=== PATIENT | female | born 1960 | race Caucasian/White ===

== ENCOUNTER 2021-09-21 10:20 | Outpatient (REF) | payer OTHER, SELFPAY ==
[2021-09-21 10:49] LABS: Blood Urea Nitrogen 11 mg/dL (9-16); Estimated Glomerular Filt Rate > 60
== END 2021-09-21 10:21 | disposition home or self-care (01) ==
LOC: HO.LAB 10:20
PROVIDERS: PCP Pediatrics; Visit Provider Urology
DX: R31.0 Gross hematuria (principal)
CPT/HCPCS: 36415; 82565; 84520

== ENCOUNTER 2021-09-25 09:01 | Outpatient (REF) | payer OTHER, SELFPAY ==
--- NOTE | ~2021-09-25 | CT_ITS ---
EXAMINATION: CT ABDOMEN AND PELVIS WITHOUT AND WITH CONTRAST CLINICAL INFORMATION: Gross hematuria COMPARISON: Previous CT scan of the abdomen and pelvis most recent July 2017 and renal ultrasound October 2014 TECHNIQUE: Multidetector volumetric imaging was performed of the abdomen and pelvis before and after the IV administration of 85 mL of Omnipaque 300 intravenous contrast. Sagittal and coronal reformatted images were obtained on the technologist's workstation. This CT examination was performed using dose optimization techniques as appropriate, variously including the following: *Automated exposure control *Adjustment of mA and/or kV according to patient size (this includes techniques or standardized protocols for targeted exams where dose is matched to indication/reason for exam; i.e. extremities or head) *Use of iterative reconstruction technique DLP: 181 mGy-cm FINDINGS: LUNG BASES: The visualized lung bases are unremarkable. LIVER, GALLBLADDER, AND BILIARY TREE: The liver is low in attenuation suggestive of fatty infiltration. The liver is otherwise normal. The gallbladder is been removed. Intrahepatic bile ducts are normal in caliber. Common bile duct is prominent measuring 1.2 cm. This may be normal postcholecystectomy. PANCREAS: Unremarkable SPLEEN: Unremarkable ADRENAL GLANDS: Unremarkable KIDNEYS AND URETERS: The kidneys are normal in size, shape, and attenuation. There are 2 small 1-2 mm stone in the upper and lower pole of the left kidney. No right-sided stone is seen. There may be areas of mild renal cortical thinning or scarring. There is a small 5 mm low-attenuation lesion in the lateral midpole the right kidney probably representing a cyst. No imaging follow-up needed. There is no hydronephrosis. The collecting systems and ureters are normal. BLADDER: Unremarkable GASTROINTESTINAL TRACT: There is diverticulosis of the colon. The small and large bowel are otherwise unremarkable. The appendix is unremarkable. ABDOMINAL WALL: No significant hernia is appreciated. LYMPH NODES: Normal VASCULAR: There is a 1 x 1.5 cm splenic artery aneurysm. This is similar in size to previous exams. PELVIC VISCERA: There is a 2 cm right ovarian cyst. This is similar to previous exams. No imaging follow-up needed. The uterus and adnexa are otherwise unremarkable. OSSEOUS STRUCTURES: There are degenerative changes of the spine. CT/CT abdomen pelvis wo/w con IMPRESSION: 2 small left renal stone. Small probable right renal cyst. Fatty liver. Diverticulosis of the colon. 1 x 1.5 cm splenic artery aneurysm. 2 cm stable right adnexal cyst.
[2021-09-25] MEDS: iohexoL 350 MG/ML 100 ML INFUS..BTL IV (09:56)
== END 2021-09-25 09:02 | disposition home or self-care (01) ==
LOC: HO.CT 09:01
PROVIDERS: PCP Pediatrics; Visit Provider Urology
DX: R31.0 Gross hematuria (principal)
CPT/HCPCS: 74178; Q9967

== ENCOUNTER 2025-08-02 11:10 | Emergency (ER) | payer MEDICARE, SELFPAY ==
--- NOTE | ~2025-08-02 | CT_ITS ---
EXAMINATION: CT HEAD WITHOUT CONTRAST CLINICAL INFORMATION: Left-sided heaviness COMPARISON: None available. TECHNIQUE: Contiguous axial imaging was performed from the skull base to vertex without intravenous administration of contrast. This CT examination was performed using dose optimization techniques as appropriate, variously including the following: *Automated exposure control *Adjustment of mA and/or kV according to patient size (this includes techniques or standardized protocols for targeted exams where dose is matched to indication/reason for exam; i.e. extremities or head) *Use of iterative reconstruction technique DLP: 630 mGY*cm FINDINGS: There is no acute ischemic change. There is no intracranial hemorrhage. There is no mass-effect or midline shift. Basal cisterns and ventricles are within normal limits for age/cerebral volume. Orbits are symmetrical and unremarkable. There is near complete opacification of the left maxillary sinus. The root of a tooth, probably a premolar, extends up into the floor of the left maxillary sinus. The floor the maxillary sinus appears severely thinned and tented upward 4-5 mm adjacent to the aforementioned tooth. There is thickening of the lateral anterior wall of the left maxillary sinus. There is a small mucous retention cyst in the posterior floor the right maxillary sinus. There is a 5 mm spur on the right side of the bony nasal septum. There are no bony abnormalities. CT/CT head/brain wo IV con IMPRESSION: No acute intracranial abnormality. Chronic left maxillary sinusitis possibly related to the root of a tooth (probably a premolar) extending up to the floor of the maxillary sinus with thinning, upward buckling and severe thinning of the adjacent floor the maxillary sinus. There is a 5 mm bony spur projecting off the right side of the nasal septum. Electronically signed by: Chu Edmond MD 08/02/2025 12:23 PM EDT
--- NOTE | ~2025-08-02 | XR_ITS ---
EXAMINATION: XR CHEST 2 VIEWS HISTORY: pain COMPARISON: Comparison is made with the prior examination dated 12/30/2019. FINDINGS: PA and lateral views of the chest are submitted. The lungs are expanded and clear. There is no pleural effusion, pneumothorax, or pulmonary vascular congestion. The heart is normal in size. There is mild degenerative disc disease of the spine. XR/XR chest 2V IMPRESSION: No acute cardiopulmonary abnormality. Electronically signed by: Akshat Humphrey MD 08/02/2025 12:06 PM EDT
--- NOTE | 2025-08-02 11:12 | ECG_ITS ---
Test Reason : cp Blood Pressure : */* mmHG Vent. Rate : 59 BPM Atrial Rate : 59 BPM P-R Int : 170 ms QRS Dur : 86 ms QT Int : 422 ms P-R-T Axes : 24 -19 25 degrees QTcB Int : 417 ms Sinus bradycardia Otherwise normal ECG When compared with ECG of 30-Dec-2019 09:16, No significant change was found Referred By: Generic ED Physician Electronically Signed By: SOL WICK
--- NOTE | 2025-08-02 11:40 | ED_ITS ---
HPI - General Adult General Chief complaint: Neuro Symptoms/Deficit Stated complaint: Chest pain, high BP Time Seen by Provider: 08/02/25 12:37 History of Present Illness ED Provider: Onur Loco MD HPI narrative: 65-year-old female with left-sided facial arm and leg pain discomfort subjective heavy feeling when walking. She woke up at about 03:00 mostly with the leg discomfort she describes as pain mostly in the proximal medial calf area no traumatic injuries she does have history of varicose veins and chronic nonpitting enlargement of the lower legs. No prior DVT or PE per her. She has not been on medications. She awoke then and went back to bed and then woke few hours later felt some facial pain in the left side and discomfort in the left arm particularly in the left 3rd digit and 5th digit she felt like they were transiently swollen no other arm swelling. Denied chest pain denies other neurologic symptoms or history TIA or stroke Related Data Previous Rx's ?Medication ?Instructions ?Recorded amoxicillin 875 mg-potassium 1 tab PO BID 7 days #14 t abs 08/02/25 clavulanate 125 mg tablet aspirin 81 mg capsule 81 mg PO DAILY #30 caps 07/18 05/11 Allergies Allergy/AdvReac Type Severity Reaction Status Date / Time nut - unspecified (NUTS) Allergy Mild ITCHING Verified 08/02/25 11:46 SHELLFISH Allergy Unknown ITCHING Uncoded 08/03/20 14:56 [facility] Social History Social History Advance Directives: No Advance Directives Information Provided: Yes Physical Exam ED Exam Exam: GENERAL: Well appearing. No apparent distress. Alert. HEAD/NECK: Normal to inspection. Neck supple. No cervical lymphadenopathy. EYES: Normal to inspection. Sclera non-icteric. ENMT: External nose normal. RESPIRATORY: Respiratory effort normal. Lungs clear to auscultation bilaterally. CARDIOVASCULAR: Regular rate. Normal rhythm. No murmur. No rubs. GI: Soft, non-tender, non-distended. No rebound or guarding. No masses palpable. No hepatosplenomegaly. SKIN: No jaundice. NEUROLOGICAL: Alert. PSYCHIATRIC: Alert. Appearance appropriate for situation. Attitude cooperative. OTHER: Vascular: No objective or pitting edema. Some mild varicosities superficially in the legs. Comprehensive Neuro exam: Face symmetric, tongue midline, strong symmetric eye closure, pupils symmetric and reactive to light, intact sensation to the face throughout, intact strong face deviation and shoulder shrug. Gait assessment normal no objective sensory deficits to light touch testing Sensation intact to light touch throughout * 5 out of 5 strength in bilateral upper extremities, 5 and 5 strength in lower extremities Vital Signs: Vital Signs - 24 hr 08/02/25 11:42 08/02/25 13:32 08/02/25 13:43 Temperature 97.8 F 98.2 F 98.2 F Pulse Rate 58 71 71 Respiratory Rate 18 20 20 Blood Pressure 214/73 H 143/78 H 143/78 H Pulse Oximetry 97 95 95 Oxygen Delivery Method Room Air Room Air Room Air BMI result Body Mass Index 45.5 Course Course Course Narrative: Rapid medical examination performed in triage by Jemima Manzanares PA-C. Patient is a 65 year old assigned female at presenting to the emergency department with left sided heaviness. Detailed physical exam and review of systems are deferred to the ecological risk assessor. EKG, labs, imaging, swabs ordered. Patient placed back in the waiting room pending room availability and results. Medications Administered Discontinued Medications Generic Name Dose Route Start Last Admin Trade Name Darenq PRN Reason Stop Dose Admin Amoxicillin/Clavulanate Potassium 875 mg 08/02/25 12:41 08/02/25 13:29 Amoxicillin/Potassium Clav 875 Mg Tablet PO 08/02/25 12:42 875 mg ONCE ONE Administration Oxycodone HCl 5 mg 08/02/25 12:41 08/02/25 13:29 Oxycodone Hcl Immed Release 5 Mg Tablet PO 08/02/25 12:42 5 mg ONCE ONE Administration Medical Decision Making Medical Decision Making [facility] Narrative: Medical Decision Makin-year-old female with atypical symptoms no loss of function symptomatology and reassuring examination here. Doubt CVA though this was considered. The patient primarily had concern for this. Her discomfort is atypical particularly in the left arm there is no objective edema neurologic deficit or objective swelling of the digits as she was concerned about above. No typical anginal symptomatology nor any known coronary disease. ECG is reassuring without ischemic changes Preliminary Favored Differential Diagnosis: Dental infection, hypertensive urgency, medical screening exam, musculoskeletal pain or cramp among additional considered etiologies Testing Interpreted Independently: ?ECG: Sinus bradycardia. Rate 59. No ischemic changes. QTC 417 Reassuring lab work negative biomarker Radiology or Lab testing Results Reviewed: ?CT head only with possibly odontogenic or maxillary sinus pathology as noted Consults: ?See below for details Independent Historians/External Chart Reviews: ?See below for details Social Determinants of Health Impacting MDM/Planning: ?See below for details Lab Data MDM Lab Attestation statement: I reviewed the patient's lab results. 08/02/25 11:58 08/02/25 11:58 Labs: Lab Results 08/02/25 Range/Units 11:58 WBC 7.7 (4.8-10.8) X10*3/uL RBC 5.01 (4.20-5.50) X10*6/uL Hgb 15.1 (12.0-16.0) g/dl Hct 44.6 (37.0-47.0) % MCV 89.0 (80.0-98.0) fL MCH 30.1 (27.0-33.0) pg MCHC 33.9 (31.0-35.0) g/dl RDW 13.2 (11.0-16.0) % Plt Count 236 (160-400) X10*3/uL MPV 10.8 (9.4-12.3) fL Immature Gran % (Auto) 0.3 (0.0-0.4) % Neut % (Auto) 58.8 (45-73) % Lymph % (Auto) 29.0 (20-40) % [place] % (Auto) 8.6 (2-11) % Eos % (Auto) 3.0 (0-4) % Baso % (Auto) 0.3 (0-2) % Lymph # (Auto) 2.2 (1.2-4.9) X10*3/uL [place] # (Auto) 0.7 (0.1-1.2) X10*3/uL Eos # (Auto) 0.2 (0.0-0.4) X10*3/uL Baso # (Auto) 0.0 (0.0-0.2) X10*3/uL Abs Immat Gran (auto) 0.02 (0.00-0.03) X10*3/uL Absolute Neuts (auto) 4.5 (2.0-8.3) x10*3/uL Absolute Nucleated RBC 0.000 (0.0-0.012) X10*3/uL Nucleated RBC % (auto) 0.0 (0.0-0.2) /100WBC PT 12.7 H (10.9-12.4) SEC INR 1.1 (0.9-1.1) Sodium 142 (135-145) mmol/L Potassium 4.1 (3.3-5.1) mmol/L Chloride 108 (96-108) mmol/L Carbon Dioxide 27 (22-29) mmol/L Anion Gap 11 L (12-20) BUN 11 (9-16) mg/dL Creatinine 0.68 (0.5-1.4) mg/dL Estim Creat Clear Calc 94.3 Estimated GFR > 60 Random Glucose 105 (60-115) mg/dL Calcium 10.3 H (8.4-10.2) mg/dL Magnesium 2.1 (1.6-2.6) mg/dL Total Bilirubin 0.8 (0.0-1.0) mg/dL AST 30 (5-31) U/L ALT 34 H (0-31) U/L Alkaline Phosphatase 82 (39-117) U/L Troponin I High Sens < 2.7 (<3.5-17.0) ng/L Total Protein 7.8 (6.5-8.0) g/dL Albumin 4.4 (3.5-5.0) g/dL Discharge Plan Discharge Clinical Impression: Dental caries Patient Disposition: Home, Self-Care Instructions: Toothache (ED) Additional Instructions: While here in the emergency department you had a CT of the brain and chest x- ray. There was no abnormalities of the brain or central nervous system visualized. You did have evidence of tooth degeneration possibly caries or infection. We will treat you for this. We have prescribed you antibiotics and strongly recommend you take baby aspirin daily until you see PCP IMPRESSION: No acute intracranial abnormality. Chronic left maxillary sinusitis possibly related to the root of a tooth (probably a premolar) extending up to the floor of the maxillary sinus with thinning, upward buckling and severe thinning of the adjacent floor the maxillary sinus. There is a 5 mm bony spur projecting off the right side of the nasal septum. Prescriptions: New amoxicillin-pot clavulanate 875-125 mg tablet 1 tab PO BID 7 Days Qty: 14 0RF aspirin 81 mg capsule 81 mg PO DAILY Qty: 30 0RF Interventions: ED Discharge Assessment Last Done: 08/02/25 13:43 Discharge Date/Time: 08/02/25 13:43 Print Language: Slovenian
[2025-08-02 11:42] VITALS: BP 214/73; PULSE 58; RESP 18; TEMP 36.6; O2SAT 97; BMI 45.5
[2025-08-02 12:01] LABS: MANUAL DIFF FLAG NO
[2025-08-02 12:05] LABS: Hematocrit 44.6 % (37.0-47.0); Hemoglobin 15.1 g/dl (12.0-16.0); Imm Gran Abs Auto 0.02 X10*3/uL (0.00-0.03); Imm Gran Pct Auto 0.3 % (0.0-0.4); Lymphocytes Absolute Auto 2.2 X10*3/uL (1.2-4.9); Mean Corpuscular HGB Conc 33.9 g/dl (31.0-35.0); Mean Corpuscular Hemoglobin 30.1 pg (27.0-33.0); Mean Corpuscular Volume 89.0 fL (80.0-98.0); NRBC Abs Auto 0.000 X10*3/uL (0.0-0.012); NRBC Pct Auto 0.0 /100WBC (0.0-0.2); Platelet Count 236 X10*3/uL (160-400); Red Blood Count 5.01 X10*6/uL (4.20-5.50); White Blood Count 7.7 X10*3/uL (4.8-10.8)
[2025-08-02 12:18] LABS: Alanine Aminotransferase 34 U/L (0-31); Albumin Level 4.4 g/dL (3.5-5.0); Alkaline Phosphatase 82 U/L (39-117); Anion Gap 11 (12-20); Aspartate Amino Transferase 30 U/L (5-31); Blood Urea Nitrogen 11 mg/dL (9-16); Calcium 10.3 mg/dL (8.4-10.2); Carbon Dioxide 27 mmol/L (22-29); Chloride 108 mmol/L (96-108); Creatinine Clr Calc Pharmacy 94.3; Estimated Glomerular Filt Rate > 60; Magnesium 2.1 mg/dL (1.6-2.6); Potassium 4.1 mmol/L (3.3-5.1); Sodium 142 mmol/L (135-145); Total Protein 7.8 g/dL (6.5-8.0)
[2025-08-02 12:19] LABS: INTERNATIONAL NORM RATIO 1.1 (0.9-1.1); Prothrombin Time 12.7 SEC (10.9-12.4)
[2025-08-02 12:27] LABS: Troponin-I High Sensitivity < 2.7 ng/L (<3.5-17.0)
[2025-08-02] MEDS: oxyCODONE HCl Immed Release 5 MG TABLET PO (13:29)
[2025-08-02 13:32] VITALS: BP 143/78; PULSE 71; RESP 20; TEMP 36.8; O2SAT 95
[2025-08-02 13:43] VITALS: BP 143/78; PULSE 71; RESP 20; TEMP 36.8; O2SAT 95
--- OUTSIDE RECORDS SUMMARY | 2025-08-02 16:41 | XMS_ITS | Clinical Summary ---
Author Organization [facility] [address] [place] [address] [place] [phone] Phone Care Team Providers Care Group Exercise Instructor Name Role Phone Sahara Dyson MD Primary Care Provider [phone] Allergies Active Allergy Reactions Criticality Noted Date Comments [place] Oil Itching 07/20/2013 Peanut Itching 07/20/2013 Shellfish Derived 04/21/2012 Medications acetaminophen (TYLENOL 8 HOUR) 650 mg 8 hr tablet Take 1 Tab by mouth every 8 hours as needed for Pain for up to 10 days. 7 Active ibuprofen (ADVIL,MOTRIN) 600 mg tablet Take 1 Tab by mouth every 6 hours as needed for Pain. 5 Active meclizine (ANTIVERT) 12.5 mg tablet Take 1 tablet (12.5 mg total) by mouth 3 (three) times a day if needed for dizziness. Take 0.5-1 Tablets by mouth every 8 hours as needed (for vertigo, take only at night time if too sedating). 30 tablet 1 4 Active diclofenac (VOLTAREN) 1 % topical gel APPLY 2 G TOPICALLY TWICE A DAY 100 g 5 5 Active polyethylene glycol (Golytely) 236-22.74-6.74 -5.86 gram solution Take 4L by mouth once for one dose. May substitue any PEG. Starting at 6PM the night before your procedure drink 1 8oz glasses at your own pace until you complete half of the gallon. Finish 2nd half of the gallon 5 hours before your procedure. 4000 mL 5 Active bisacodyL (DULCOLAX) 5 mg EC tablet Take 2 tablets by mouth right before beginning bowel prep. See instructions provided by the office 2 tablet 5 Active bisacodyL (DULCOLAX) 5 mg EC tablet Take 2 tablets by mouth right before beginning bowel prep. See instructions provided by the office 2 tablet 5 Active polyethylene glycol (Golytely) 236-22.74-6.74 -5.86 gram solution Take 4L by mouth once for one dose. May substitue any PEG. Starting at 2PM the day before your procedure drink 1 8oz glasses at your own pace until you complete half of the gallon. Finish 2nd half of the gallon at 8PM. 4000 mL 5 Active Active Problems Problem Noted Date Diagnosed Date Splenic artery aneurysm ([facility] V24) 09/21/2024 Overview (09/21/2024): 15 mm - ab CT 06/07/15 Morbid obesity with BMI of 4 5.0-49.9, adult ([facility] V24, [facility] V28) 09/21/2024 Gastroesophageal reflux disease without esophagi tis 10/29/2016 BPPV (benign paroxysmal positional vertigo) 06/2015 Hip pain, left 02/12/2012 Varicose veins of leg with pain 02/12/2012 Overview (09/21/2024): 04/21/2012 Neg Jonathan' Encounters Date Type Department Care Team Description 05/24/2025 Telephone Gastroenterology - [place] [facility] 175 [facility] [address] [place] [address] Olu Bruce DO from Last 3 Months Immunizations Name Administration Dates Next Due Hepatitis B Pediatric (Enger ix B; Recombivax HB) to less than 20 yo 07/05/2008,08/27/2007,03/31/2007 Influenza trivalent, 0.5mL, preservative free (Fluarix; FluLaval; Fluzone) ages 6mo and older (Afluria) 3 years and older 07/12/2020,08/02/2019,08/31/2014,2012,08/27/2007 Td Tetanus diptheria (Tdvax) 7yo and older 11/03/2007 Tdap Tetanus diptheria acell ular pertussis (Boostrix; Adacel) 7yo and older 07/20/2013 Surgical History Surgery Date Site/Laterality Comments CHOLECYSTECTOMY 2004 PROCEDURE: OR CHOLECYSTECTOMY KIDNEY STONE SURGERY 2006 PROCEDURE: OR NEPHROLITHOTOMY REMOVAL CALCULUS SECTION 1977 PROCEDURE: HISTORICAL TUBAL LIGATION PROCEDURE: HISTORICAL TUBAL LIGATION COLONOSCOPY 07/01/12 PROCEDURE: HISTORICAL COLONOSCOPY; COMMENT: tics; repeat in 5 yrs BREAST BIOPSY 06/18/2019 Right PROCEDURE: OR BIOPSY BREAST OPEN INCISIONAL; COMMENT: benign, intraductal papillomas BREAST BIOPSY PROCEDURE: BX BREAST; PERC NEEDLE CORE W/IMAG GUID Medical History Medical History Date Comments Obesity DX:Obesity History of kidney stones DX:Hist ory of kidney stones Splenic artery aneurysm (CMS/HCC V24) DX:Splenic artery aneurysm (HCC); COMMENT: 15 mm - ab CT 06/07/15 Vertigo DX:Vertigo GERD (gastroesophageal reflux disease) DX:GERD (gastroesophageal reflux disease) Post-menopausal bleeding DX:Post -menopausal bleeding Family History Medical History Relation Name Comments Throat cancer Father stomach CA unc le and aunt had pancreatic CA Uterine cancer Father's side cousin Breast cancer Mother Colon cancer Sister 1 Stomach cancer Uncle father's side Ovarian cancer Neg Hx Relation Name Status Comments Brother Alive stomach ulcers, depression, thyroid issues Daughter Alive healthy Father throat CA Father's side Mother breast CA (age 72), AAA, HTN, high cholesterol, bad kidneys Mother's side high cholester ol Sister 1 Sister 2 Alive colon CA (53), thyroid Sister 3 Alive unknown Sister 4 Alive healthy Son 1 Alive healthy Son 2 Alive healthy Uncle Social History Tobacco Use Types Packs/Day Years Used Date Smoking Tobacco: Never Smokeless Tobacco: Never Alcohol Use Standard Drinks/Week Comments No 0 (1 standard drink = 0.6 oz pur e alcohol) Housing Instability Answer Date Recorde d Are you worried that in the next 2 months you may not have stable housing? No 10/27/2024 Food Access & Nutrition Answer Date Rec orded Do you have access to a vari ety of food including fruits and vegetables? No 10/27/2024 Financial Risk Answer Date Recorded How hard is it for you to pa y for the very basics like food, housing, medical care, and air conditioning / heating? Not very hard 10/27/2024 Transportation Answer Date Recorded Has the lack of transportati on kept you from meetings, work, or from getting things needed for daily living? No Has the lack of transportati on kept you from medical appointments or from getting medications? No 10/27/2024 Social Isolation Answer Date Recorded How often do you feel lonely or isolated from th ose around you? Never 10/27/2024 Food Risk Answer Date Recorded Within the past 12 months we worried whether our food would run out before we got money to buy more. Never true 10/27/2024 Within the past 12 months th e food we bought just didn't last and we didn't have money to get more. Never true 10/27/2024 Dependent Care Answer Date Recorded Do you need help finding or paying for care for your loved ones. For example, children's book author or elderly care for an older adult? Patient declined 10/27/2024 Education Answer Date Recorded Do you think completing more education or training, like finishing a GED, going to college, or learning a trade, would be helpful for you? No 10/27/2024 Employment and Income Answer Date Recor ded During the last four weeks, have you been actively looking for work? No 10/27/2024 Living Situation Answer Date Recorded What is your living situation? 1 12/28/2023 Comments No Sex and Gender Information Value Date Recorded Sex Assigned at Not on file Legal Sex Female 2:14 AM EST Gender Identity Not on file Sexual Orientation Not on file Obstetrics History Last Filed Vital Signs Vital Sign Reading Time Taken Comments Blood Pressure 122/78 10/27/2024 1:19 PM EST Pulse 76 10/27/2024 1:19 PM EST Temperature 36.4 C (97.5 F) 10/27/2024 1:19 PM EST Respiratory Rate 14 10/27/2024 1:19 PM EST Oxygen Saturation - - Inhaled Oxygen Concentration - - Weight 111 kg (244 lb) 10/27/2024 1:19 PM EST Height 154.9 cm (5' 1 ) 10/27/2024 1:19 PM EST Body Mass Index 46.1 10/27/2024 1:19 PM EST Plan of Treatment Upcoming Encounters Date Type Department Care Team (Late st Contact Info) Description 08/15/2025 12:00 PM EDT Appointment Endoscopy [address] [place] [id number] Olu Bruce, 175 [facility] 200 [place] [address] Health Maintenance Due Date Last Done Comments Pneumococcal Vaccine: 50+ Years (1 of 1 - PCV) 01/15/2010 Zoster Vaccines (1 of 2) 01/15/2010 RSV Immunization Adult Patients (1 - Risk 60-74 years 1-dose series) 2020 Cervical Cancer Screening: Pap Smear 02/16/2022 02/16/2019, 02/16/2019, 02/16/2019 Colorectal Cancer Screening: Colonoscopy 10/26/2022 Osteoporosis Screening (Bone Density Screening) 10/26/2022 Depression Screening 11/17/2024 10/27/2024 Falls Risk Assessment 01/15/2025 COVID-19 Vaccine ( season) 2025 Influenza Vaccine (#1) 2025 , 08/02/2019, 08/13/2018, Additional history exists DTaP,Tdap,and Td Vaccines (3 - Td or Tdap) 10/26/2025 07/20/2013, 11/03/2007 Postponed from 07/20/2023 (Patient Refused) Social Influencers of Health Screening 10/27/2025 10/27/2024 Breast Cancer Screening 09/09/2026 09/09/20 24, 09/09/2024, 09/05/2023, Additional history exists Cholesterol Screening (Lipid Panel) 09/13/2026 09/13/2021 Hepatitis B Vaccines Aged Out 07/05/2008, 08/27/2007, 03/31/2007 No longer eligible based on patient's age to complete this topic Hepatitis C Screening Completed 05/30/2017 HIB Vaccines Aged Out No longer eligi ble based on patient's age to complete this topic HPV Vaccines Aged Out No longer eligi ble based on patient's age to complete this topic Hepatitis A Vaccines Aged Out No long er eligible based on patient's age to complete this topic IPV Vaccines Aged Out No longer eligi ble based on patient's age to complete this topic MMR Vaccines Aged Out No longer eligi ble based on patient's age to complete this topic Meningococcal ACWY Vaccine Aged Out N o longer eligible based on patient's age to complete this topic Meningococcal B Vaccine Aged Out No l onger eligible based on patient's age to complete this topic RSV Immunization Patients Under 20 months Aged Out No longer eligible based on patient's age to complete this topic Varicella Vaccines Aged Out No longer eligible based on patient's age to complete this topic Procedures Procedure Name Priority Date/Time Associated Diagnosis Comments SCREENING MAMMOGRAPHY BI 2-VIEW BREAST INC CAD Routine 09/09/2024 1:56 PM EDT Encounter for gynecological examination (general) (routine) without abnormal findings LIPID PANEL Routine 09/13/2021 PAP SMEAR Routine 02/16/2019 HM HEPATITIS C SCREENING Routine 05/30/2017 from Last 3 Months or Most Recently Relevant to Health Maintenance Results * SCREENING MAMMOGRAPHY BI 2-VIEW BREAST INC CAD (09/09/2024 1:56 PM EDT) Anatomical Region Laterality Modality Radiographic Aislinn ging 09/05/2023 11:0 2 AM EDT Narrative 09/10/2024 10:25 AM EDT This is a summary report. The complete report is available in the patient's medical record. If you cannot access the medical record, please contact the sending organization for a detailed fax or copy. Exam: Screening mammogram Findings: Digital bilateral full-field screening mammography is performed with tomosynthesis and interpreted with the aid of computer-aided detection. Comparison is made with 09/05/2023 and as far back as 03/22/2015. History of a right excisional biopsy for an intraductal papilloma 06/18/2019. Breast parenchyma is composed of scattered fibroglandular densities. No new suspicious mass, architectural distortion, or suspicious calcifications. Impression: No mammographic evidence of malignancy. BI-RADS 1 - negative [facility] [address] [id number] Procedure Note Rhea Fonseca MD - 09/18/2024 This is a summary report. The complete report is available in thepatient's medical record. If you cannot access the medical record, pleasecontact the sending organization for a detailed fax or copy. Exam: Screening mammogram Findings: Digital bilateral full-field screening mammography is performedwith tomosynthesis and interpreted with the aid of computer-aideddetection. Comparison is made with 09/05/2023 and as far back as03/22/2015. History of a right excisional biopsy for an intraductalpapilloma 06/18/2019. Breast parenchyma is composed of scattered fibroglandular densities. Nonew suspicious mass, architectural distortion, or suspiciouscalcifications. Impression: No mammographic evidence of malignancy. BI-RADS 1 - negative [facility] [address] [id number] Nataliia Rojas CNM IMG XR PROCEDURES Final Result * Lipid panel (09/13/2021) LDL/HDL Ratio 3 0 - 4 Triglycerides 108 0 - 150 mg/dL Cholesterol 168 0 - 200 mg/dL HDL 65 >=40 mg/dL LDL Cholesterol 82 0 - 100 mg/dL Blood Venous blood specimen / Unknown us Historical Provider LAB BLOOD ORDERABLES Andie l Result * Pap smear (02/16/2019) 02/16/2019 Narrative HISTORICAL TESTING LAB RESULTING AGENCY - 02/18/2019 2:57 PM EDT [id number] THINPREP PAP, IMAGED: NEGATIVE FOR SQUAMOUS INTRAEPITHELIAL LESION AND MALIGNANCY . APOLINAR BHARDWAJ(ASCP) (CASE ELECTRONICALLY SIGNED 02 18 2019) RESULT OF APTIMA HIGH RISK HPV ASSAY: HIGH RISK HPV: NEGATIVE (SEROTYPES 16,18,31,33,35,39,45,51,52,56,58,59,66,68) COMPLETED ON 2019-02-18 ADEQUACY: SATISFACTORY ENDOCERVICAL/TRANSFORMATION ZONE COMPONENT PRESENT. SOURCE: THINPREP PAP HPV ANY DX: REFLEX 16 AND 18, CERVICAL, IMAGED CLINICAL INFORMATION: HPV ANY DIAGNOSIS. Z12.4, Z01.419, PAP HX 09/24/13 Melissa Urrutia MD LAB CYTOLOGY ORDERABLES Final R esult HISTORICAL TESTING LAB RESULTING AGENCY * Hepatitis C Screening (05/30/2017) Hepatitis C Screening Abstracted us Historical Provider HEALTH MAINTENANCE Final Result from Last 3 Months or Most Recently Relevant to Health Maintenance Advance Directives Documents on File Type Date Recorded Patient Synchronizer Expl anation Health Care Decision (hx) 04/14/2015 AD ALEMAN DIRECTIVE Health Care Decision (hx) 04/14/2015 AD ALEMAN DIRECTIVE Health Care Decision (hx) 04/14/2015 AD ALEMAN DIRECTIVE Health Care Decision (hx) 04/13/2015 AD ALEMAN DIRECTIVE Health Care Decision (hx) 04/13/2015 AD ALEMAN DIRECTIVE Health Care Decision (hx) 04/13/2015 AD ALEMAN DIRECTIVE Care Teams Group Exercise Instructor Relationship Specialty Start Date End Date Sahara Dyson MD PCP - General 07/07/23
--- OUTSIDE RECORDS SUMMARY | 2025-08-02 16:41 | XMS_ITS | Clinical Summary ---
Author Organization [facility] Address [address] [place] [phone] Phone Care Team Providers Care Sheet Folder Name Role Phone Sahara Dyson MD Unavailable Sahara Dyson MD Primary Care Provider [phone] Social History Tobacco Use Types Packs/Day Years Used Date Smoking Tobacco: Never Assessed Education Answer Date Recorded Are you interested in more education? Not on thania e 03/14/2023 Are you concerned about learning? Not on file 03/14/2023 No 03/14/2023 No 03/14/2023 Digital Access Answer Date Recorded No 04/15/2023 No 04/15/2023 No 04/15/2023 Reliable internet access at home? Not on file 04/15/2023 Device with a working camera? Not on file Comments Unknown Sex and Gender Information Value Date Recorded Sex Assigned at Not on file Legal Sex Female 11:18 AM EDT Gender Identity Not on file Sexual Orientation Not on file Plan of Treatment Health Maintenance Due Date Last Done Comments LIPID PANEL 1960 DEPRESSION SCREENING 1972 SMOKING Hx and SMOKELESS TOBACCO SCREENING 01/15/1973 HEPATITIS C SCREENING 01/15/1978 HIV ONE-TIME SCREENING (18-65 YEARS) 01/15/1978 MAMMOGRAM 2000 COLOGUARD 01/15/2005 COLONOSCOPY 01/15/2005 COLORECTAL CANCER SCREENING 01/15/2005 FIT TEST 01/15/2005 FOBT 01/15/2005 SIGMOIDOSCOPY 01/15/2005 VIRTUAL COLONOSCOPY 01/15/2005 PNEUMOCOCCAL VACCINES (50+ years) (1 of 1 - PCV) 01/15/2010 ZOSTER VACCINES (1 of 2) 01/15/2010 Adult Td,Tdap Booster 07/20/2023 07/20/2013, 007 OSTEOPOROSIS SCREENING INITIAL (ONE-TIME) 01/15/2025 INFLUENZA VACCINE (#1) 2025 0, 08/02/2019, 08/13/2018, Additional history exists COVID-19 VACCINE ( - 2023- season) 2025 RSV VACCINE (1 - 1-dose 75+ series) 01/15/2035 HEPATITIS A VACCINES Aged Out No long er eligible based on patient's age to complete this topic HIB VACCINES Aged Out No longer eligi ble based on patient's age to complete this topic MENINGOCOCCAL VACCINES (ACWY) Aged Out No longer eligible based on patient's age to complete this topic MENINGOCOCCAL VACCINES (B) Aged Out N o longer eligible based on patient's age to complete this topic Medical Devices Not on file Insurance [employer] [facility] [place] [address] [place] [address] [place] [address] [place] [address] [facility]CO [facility] Care Teams Sheet Folder Relationship Specialty Start Date End Date Sahara Dyson MD [address] [place] [id number] PCP - General Internal Medicine 12/06/22 Sahara Dyson MD [address] [place] [id number] Internal Medicine 12/06/22 Additional Source Comments The information contained in this document represents components of the legal health record. It is not the complete legal health record.[facility]
== END 2025-08-02 13:43 | disposition home or self-care (01) ==
PROVIDERS: Physician Assistant Medical; Emergency Provider Emergency Medicine
DX: K02.9 Dental caries, unspecified (principal); R07.9 Chest pain, unspecified; M79.606 Pain in leg, unspecified; R42 Dizziness and giddiness
CPT/HCPCS: 36415; 70450; 71046; 80053; 83735; 84484; 85025; 85610; 93005; 99284; 99285

== ENCOUNTER → 2025-08-02 11:12 | Outpatient (BNV) | payer SELFPAY | PROVIDERS: Emergency Provider Emergency Medicine; Visit Provider Internal Medicine | DX: R00.1 Bradycardia, unspecified (principal) | CPT/HCPCS: 93010 ==

== ENCOUNTER → 2025-08-02 11:42 | Outpatient (BNV) | payer OTHER, SELFPAY | PROVIDERS: Emergency Provider Emergency Medicine; Visit Provider Radiology Diagnostic Radiology | DX: R07.9 Chest pain, unspecified (principal) | CPT/HCPCS: 71046 ==

== ENCOUNTER 2025-09-15 16:30 | Emergency (ER) | payer MEDICARE, OTHER, SELFPAY ==
--- NOTE | ~2025-09-15 | CT_ITS ---
CLINICAL HISTORY: bladder pressure, hx nephrolithiasis CT abdomen and pelvis without contrast Comparison: None provided Findings: Inflammatory stranding adjacent to sigmoid colon. Underlying lateral wall diverticulum noted. No free air or fluid collection. Lung bases clear. No acute bony abnormality. Fatty infiltration of the liver without focal abnormality. Pancreas, Spleen and adrenal glands unremarkable. Cholecystectomy. No bilateral renal stone or hydronephrosis. No focal renal abnormality or ureteral dilation. No evidence for aortic aneurysm. 1.5 cm calcified splenic artery aneurysm. No free fluid or adenopathy in the pelvis. Appendix unremarkable. Uterus normal size. No adnexal abnormality. Impression: Sigmoid diverticulitis without complicating features This document has been electronically signed by: Markos Mcfadden MD on 09/15/2025 21:50:43
[2025-09-15 16:45] VITALS: BP 181/80; PULSE 87; RESP 16; TEMP 36.6; O2SAT 97; BMI 37.7
--- NOTE | 2025-09-15 17:05 | ED.GENADULT ---
[facility] - General Adult General Chief complaint: Abdominal Pain Stated complaint: kidney stone pain Time Seen by Provider: 09/15/25 20:29 Source: patient Mode of arrival: ambulatory Limitations: no limitations History of Present Illness ED Provider: Dr. Haque [facility] narrative: This is a 65-year-old female history of nephrolithiasis presented hospital today for lower abdominal pain. Patient is complaining of pain over her bladder area. Patient stated that she has pressure to urinate over the bladder area. This is abnormal for her. She is feeling bilateral pressure from bilateral flank area. No nausea no vomiting. She does not complain of any fever. No recent illness. Patient stated that she has bilateral kidney stones in the past. Requiring intervention. Normal bowel movement. Related Data Previous Rx's ?Medication ?Instructions ?Recorded amoxicillin 875 mg-potassium 1 tab PO BID 7 days #14 tabs 08/02/25 clavulanate 125 mg tablet aspirin 81 mg capsule 81 mg PO DAILY #30 caps 08/02/25 amoxicillin 875 mg-potassium 1 tab PO Q12H 7 days #14 tabs 09/15/25 clavulanate 125 mg tablet Allergies Allergy/AdvReac Type Severity Reaction Status Date / Time nut - unspecified (NUTS) Allergy Mild ITCHING Verified 09/15/25 16:45 SHELLFISH Allergy Unknown ITCHING Uncoded 09/15/25 16:45 Review of Systems Review of Systems: Pertinent review of systems as mentioned in [facility]. All other system otherwise negative. [facility] Past Medical History [facility] Narrative: Medical history as mentioned in [facility] Physical Exam ED Exam Exam: General: Pleasant, no distress, interacting appropriately Head: Normacephalic, atraumatic ENT: oral mucosa moist, neck supple, no tracheal deviation Cardiovascular: regular rate, regular rhythm, no murmurs, rubbing, gallops Respiratory: CTAB, no wheeze, rales, rhonchi Gastrointestinal: Soft, non distended, tenderness on the infraumbilical area on palpation Neurological: Awake and alert, no facial droop noted Skin: Warm and dry Psychiatric: Appropriate mood and thoughts Vital Signs: Vital Signs - 24 hr 09/15/25 16:45 09/15/25 22:20 Temperature 98 F 97.8 F Pulse Rate 87 77 Respiratory Rate 16 17 Blood Pressure 181/80 H 132/77 Pulse Oximetry 97 99 Oxygen Delivery Method Room Air Room Air BMI result Body Mass Index 37.7 Course Course Course Narrative: RME: 65-year-old female with history of kidney stones diverticulitis presents to ED for lower abdominal pain that is worse with bowel movements and urination. Patient had appendix removed. Labs ordered Medications Administered Discontinued Medications Generic Name Dose Route Start Last Admin Trade Name Freq PRN Reason Stop Dose Admin Amoxicillin/Clavulanate Potassium 875 mg 09/15/25 22:03 09/15/25 22:20 Amoxicillin/Potassium Clav 875 Mg Tablet PO 09/15/25 22:04 875 mg ONCE ONE Administration Medical Decision Making Medical Decision Making [facility] Narrative: 65-year-old female history of nephrolithiasis presented hospital today for lower abdominal pressure and dysuria and urgency to pee. UA did not show any signs of UTI. Here the patient abdominal lab work is unremarkable. We will plan to obtain CT imaging of her abdomen and pelvis to further assess the cause of her pressure sensation in her lower abdomen. She does have significant tenderness in the inferior umbilical area. CT imaging did show signs of sigmoid diverticulitis we will plan to give patient a dose of Augmentin here. We will plan to discharge patient with a course of Augmentin to take for diverticulitis. Patient agrees and understands this plan all questions were addressed. Differential Diagnosis Differential Diagnoses: The differential diagnosis associated with the presentation includes Diverticulitis, urinary tract infection, pyelonephritis, nephrolithiasis Lab Data [facility] Lab Attestation statement: I reviewed the patient's lab results. 09/15/25 17:17 09/15/25 17:17 Labs: Lab Results 09/15/25 09/15/25 Range/Units 17:17 17:26 WBC 10.7 (4.8-10.8) X10*3/uL RBC 4.41 (4.20-5.50) X10*6/uL Hgb 13.3 (12.0-16.0) g/dl Hct 40.5 (37.0-47.0) % MCV 91.8 (80.0-98.0) fL MCH 30.2 (27.0-33.0) pg MCHC 32.8 (31.0-35.0) g/dl RDW 13.1 (11.0-16.0) % Plt Count 223 (160-400) X10*3/uL MPV 10.7 (9.4-12.3) fL Immature Gran % (Auto) 0.3 (0.0-0.4) % Neut % (Auto) 65.9 (45-73) % Lymph % (Auto) 22.3 (20-40) % [place] % (Auto) 9.0 (2-11) % Eos % (Auto) 2.2 (0-4) % Baso % (Auto) 0.3 (0-2) % Lymph # (Auto) 2.4 (1.2-4.9) X10*3/uL [place] # (Auto) 1.0 (0.1-1.2) X10*3/uL Eos # (Auto) 0.2 (0.0-0.4) X10*3/uL Baso # (Auto) 0.0 (0.0-0.2) X10*3/uL Abs Immat Gran (auto) 0.03 (0.00-0.03) X10*3/uL Absolute Neuts (auto) 7.1 (2.0-8.3) x10*3/uL Absolute Nucleated RBC 0.000 (0.0-0.012) X10*3/uL Nucleated RBC % (auto) 0.0 (0.0-0.2) /100WBC Sodium 142 (135-145) mmol/L Potassium 3.7 (3.3-5.1) mmol/L Chloride 107 (96-108) mmol/L Carbon Dioxide 28 (22-29) mmol/L Anion Gap 11 L (12-20) BUN 16 (9-16) mg/dL Creatinine 0.76 (0.5-1.4) mg/dL Estim Creat Clear Calc 97.0 Estimated GFR > 60 Random Glucose 161 H (60-115) mg/dL Calcium 9.0 D (8.4-10.2) mg/dL Total Bilirubin 0.4 (0.0-1.0) mg/dL AST 20 (5-31) U/L ALT 30 (0-31) U/L Alkaline Phosphatase 88 (39-117) U/L Total Protein 7.1 (6.5-8.0) g/dL Albumin 4.1 (3.5-5.0) g/dL Urine Color Yellow Urine Appearance Clear Urine pH 5.5 (5.0-9.0) Ur Specific [place] 1.020 (1.005-1.025) Urine Protein Negative (Neg-Trace) mg/dL Urine Glucose (UA) Negative (Negative) mg/dL Urine Ketones Negative (Negative) mg/dL Urine Blood Negative (Negative) Urine Nitrite Negative (Negative) Ur Leukocyte Esterase Negative (Negative) Independent Interpretation I performed an independent interpretation of an: CT Scan Radiology Impression Discussion of test interpretation with radiology: I have reviewed the radiologist's reading. Prescription Management I considered prescription management with: Antibiotic Discharge Plan Discharge Clinical Impression: Diverticulitis Patient Disposition: Home, Self-Care Instructions: Diverticulitis (ED) Prescriptions: New amoxicillin-pot clavulanate 875-125 mg tablet 1 tab PO Q12H 7 Days Qty: 14 0RF No Action amoxicillin-pot clavulanate 875-125 mg tablet 1 tab PO BID 7 Days Qty: 14 0RF aspirin 81 mg capsule 81 mg PO DAILY Qty: 30 0RF Interventions: ED Discharge Assessment Last Done: 09/15/25 22:05 Discharge Date/Time: 09/15/25 22:05 Print Language: Ukrainian
[2025-09-15 17:31] LABS: MANUAL DIFF FLAG NO
[2025-09-15 17:33] LABS: Hematocrit 40.5 % (37.0-47.0); Hemoglobin 13.3 g/dl (12.0-16.0); Imm Gran Abs Auto 0.03 X10*3/uL (0.00-0.03); Imm Gran Pct Auto 0.3 % (0.0-0.4); Lymphocytes Absolute Auto 2.4 X10*3/uL (1.2-4.9); Mean Corpuscular HGB Conc 32.8 g/dl (31.0-35.0); Mean Corpuscular Hemoglobin 30.2 pg (27.0-33.0); Mean Corpuscular Volume 91.8 fL (80.0-98.0); NRBC Abs Auto 0.000 X10*3/uL (0.0-0.012); NRBC Pct Auto 0.0 /100WBC (0.0-0.2); Platelet Count 223 X10*3/uL (160-400); Red Blood Count 4.41 X10*6/uL (4.20-5.50); White Blood Count 10.7 X10*3/uL (4.8-10.8)
[2025-09-15 17:38] LABS: Appearance Urine Clear; Glucose Urine UA Negative (Negative); PH 5.5 (5.0-9.0); Specific Gravity - Urine 1.020 (1.005-1.025)
[2025-09-15 17:47] LABS: Alanine Aminotransferase 30 U/L (0-31); Albumin Level 4.1 g/dL (3.5-5.0); Alkaline Phosphatase 88 U/L (39-117); Anion Gap 11 (12-20); Aspartate Amino Transferase 20 U/L (5-31); Blood Urea Nitrogen 16 mg/dL (9-16); Calcium 9.0 mg/dL (8.4-10.2); Carbon Dioxide 28 mmol/L (22-29); Chloride 107 mmol/L (96-108); Creatinine Clr Calc Pharmacy 97.0; Estimated Glomerular Filt Rate > 60; Potassium 3.7 mmol/L (3.3-5.1); Sodium 142 mmol/L (135-145); Total Protein 7.1 g/dL (6.5-8.0)
--- OUTSIDE RECORDS SUMMARY | 2025-09-15 21:09 | XMS_ITS | Clinical Summary ---
Author Organization Merged With [facility] Address [address] [place] [id number] Phone Care Team Providers Care Director Cardiovascular Name Role Phone Sahara Dyson MD Unavailable Sahara Dyson MD Primary Care Provider Social History Tobacco Use Types Packs/Day Years [...] Additional history exists COVID-19 VACCINE ( - 2024- season) 2025 RSV VACCINE (1 - 1-dose [...] topic Medical Devices Not on file Insurance [employer] [facility] [place] [address] [place] [address] [place] [address] [place] [address] ACO [facility] [place] [address] Care Teams Director Cardiovascular Relationship Specialty Start Date End Date Sahara Dyson MD [address] [place] [id number] PCP - General Internal Medicine 12/06/22 Sahara Dyson MD [address] [place] [id number] Internal Medicine 12/06/22 Additional Source Comments The information contained in this document represents components of the legal health record. It is not the complete legal health record.[facility]erged With [facility]
--- OUTSIDE RECORDS SUMMARY | 2025-09-15 21:09 | XMS_ITS | Clinical Summary ---
Author Organization [facility] [address] [place] [address] [place] [phone] Phone Care Team Providers Care Branch General Manager Name Role Phone Sahara Dyson MD Primary Care Provider [phone] Allergies Active Allergy Reactions Criticality Noted Date Comments [place] Oil Itching 07/20/2013 Peanut Itching 07/20/2013 Shellfish [...] Noted Date Diagnosed Date Splenic artery aneurysm ([facility] V24) 09/21/2024 Overview (09/21/2024): 15 mm - ab CT 06/07/15 Morbid obesity with BMI of 4 5.0-49.9, adult ([facility] V24, [facility] V28) 09/21/2024 Gastroesophageal reflux disease without esophagi tis 10/29/2016 BPPV (benign paroxysmal positional vertigo) 06/2015 Hip pain, left 02/12/2012 Varicose veins of leg with pain 02/12/2012 Overview (09/21/2024): 04/21/2012 Neg Jonathan' Encounters Date Type Department Care Team Description 09/15/2025 Telephone Adult Medicine [address] [id number] Sahara Dyson MD from Last 3 Months Immunizations Immunization Administration Dates Next Due Hepatitis B Pediatric [...] Surgery Date Site/Laterality Comments CHOLECYSTECTOMY 2004 PROCEDURE: CT CHOLECYSTECTOMY KIDNEY STONE SURGERY 2006 PROCEDURE: CT NEPHROLITHOTOMY REMOVAL CALCULUS SECTION 1977 PROCEDURE: HISTORICAL TUBAL LIGATION PROCEDURE: HISTORICAL TUBAL LIGATION COLONOSCOPY 07/01/12 PROCEDURE: HISTORICAL COLONOSCOPY; COMMENT: tics; repeat in 5 yrs BREAST BIOPSY 06/18/2019 Right PROCEDURE: CT BIOPSY BREAST OPEN INCISIONAL; COMMENT: benign, intraductal [...] care for your loved ones. For example, child care center administrator or elderly care for an older adult? [...] Date Recorded What is your living situation? Unrecognized valu e 10/27/2024 Comments No Sex and Gender Information Value [...] 10/27/2024 1:19 PM EST Plan of Treatment Health Maintenance Due Date Last Done Comments Colorectal Cancer Screening: Colonoscopy 1960 Pneumococcal Vaccine: 50+ Years (1 of 1 - PCV) 01/15/2010 RSV Immunization Adult Patients (1 - Risk 50-74 years 1-dose series) 01/15/2010 Zoster Vaccines (1 of 2) 01/15/2010 Cervical Cancer Screening: Pap Smear 02/16/2022 02/16/2019, 02/16/2019, 02/16/2019 Osteoporosis Screening (Bone Density Screening) 10/26/2022 Depression Screening 11/17/2024 10/27/2024 Falls Risk Assessment 01/15/2025 COVID-19 Vaccine ( - season) 2025 Influenza Vaccine (#1) 2025 , [...] evidence of malignancy. BI-RADS 1 - negative [facility] [address] [place] [address] Procedure Note Rhea Fonseca MD - 09/18/2024 [...] evidence of malignancy. BI-RADS 1 - negative [address] [place] [address] Nataliia Rojas CN IMG XR PROCEDURES Final Result * Lipid panel (09/13/2021) LDL/HDL Ratio 3 0 - 4 Triglycerides 108 0 - 150 mg/dL Cholesterol 168 0 - 200 mg/dL HDL 65 >=40 mg/dL LDL Cholesterol 82 0 - 100 mg/dL Blood Venous blood specimen / Unknown Historical Provider LAB BLOOD ORDERABLES Andie l Result * Pap smear (02/16/2019) 02/16/2019 Narrative HISTORICAL TESTING LAB RESULTING AGENCY - 02/18/2019 2:57 PM EDT [id number] THINPREP PAP, IMAGED: NEGATIVE FOR SQUAMOUS INTRAEPITHELIAL LESION AND MALIGNANCY . APOLINAR BHARDWAJ(ASCP) (CASE ELECTRONICALLY SIGNED 02 18 2019) RESULT OF APTIMA HIGH RISK HPV ASSAY: HIGH RISK HPV: NEGATIVE (SEROTYPES 16,18,31,33,35,39,45,51,52,56,58,59,66,68) COMPLETED ON 2019-02-18 ADEQUACY: SATISFACTORY ENDOCERVICAL/TRANSFORMATION ZONE COMPONENT PRESENT. SOURCE: THINPREP PAP HPV ANY DX: REFLEX 16 AND 18, CERVICAL, IMAGED CLINICAL INFORMATION: HPV ANY DIAGNOSIS. Z12.4, Z01.419, PAP HX 09/24/13 us Melissa Urrutia MD LAB CYTOLOGY ORDERABLES Final R esult HISTORICAL TESTING LAB RESULTING AGENCY * Hepatitis C Screening (05/30/2017) Hepatitis C Screening Abstracted Historical Provider HEALTH MAINTENANCE Final Result from Last 3 Months or Most Recently Relevant to Health Maintenance Insurance MEDICARE Advance Directives Documents on File Type Date Recorded Patient Demand Generation Manager Expl anation Health Care Decision (hx) 04/14/2015 AD ALEMAN DIRECTIVE Health Care Decision (hx) 04/14/2015 AD ALEMAN DIRECTIVE Health Care Decision (hx) 04/14/2015 AD ALEMAN DIRECTIVE Health Care Decision (hx) 04/13/2015 AD ALEMAN DIRECTIVE Health Care Decision (hx) 04/13/2015 AD ALEMAN DIRECTIVE Health Care Decision (hx) 04/13/2015 AD ALEMAN DIRECTIVE Care Teams Branch General Manager Relationship Specialty Start Date End Date Sahara Dyson MD PCP - General 07/07/23
--- OUTSIDE RECORDS SUMMARY | 2025-09-15 21:09 | XMS_ITS | Encounter Summary ---
Author Organization [facility] Address [address] [place] [address] Care Team Providers Care Pmo Analyst Name Role Phone Sahara Dyson MD Primary Care Provider [phone] Reason for Visit * Reason Onset Date Comments Abdominal Pain 09/15/2025 Encounter Details Date Type Department Care Team ([facility] st Contact Info) Description 09/15/2025 Telephone Adult Medicine [facility] [address] [place] [address] Sahara Dyson MD [address] [place], [place] Social History Tobacco Use Types Packs/Day Years [...] do you feel lonely or isolated from ose around you? Never 10/27/2024 Food Risk [...] for your loved ones. For example, child nutrition assistant or elderly care for an older adult? [...] on file Sexual Orientation Not on file documented as of this encounter Progress Notes * Edilson Mitchell RN - 09/15/2025 3:38 PM EDT Called and spoek with pst grand daughter who is with pt right now. Pt c/o suprapubic pain since Friday pain has progressively gotten worse. Without otc pain relievers pain -07/27. Pt advised to go toer for severe abd pain. * Nava Contreras - 09/15/2025 3:08 PM EDT Patient calling back to check on status of triage message * Nava Contreras - 09/15/2025 2:02 PM EDT Patient call requires triage: Symptoms patient is presenting: patient granddaughter Jennifer is calling. States patient has had abdominal pain since Friday and questions if she has stones again How long has patient had these symptoms?: 4 days For ALL patients calling to schedule any appointment (routine, sick visit, follow up, consult, etc.) in the outpatient setting please ask the following questions: Do you have fever of higher than 101, sore throat with difficulty swallowing or severe shortness ofbreath? no If YES to any of these above symptoms, send a message to triage and do not book. Red dot. If no, an audio or video visit should be booked. Have you had close contact with someone with Coronavirus in the last 14 days? no Have you traveled abroad? no Have you traveled recently to another state outside of [place], [place], [place], [place], [place], [place], [place]? no o If yes, did you quarantine for 14 days or have a negative covid test? no If yes to any of the above, patient is not to be scheduled in office until after 14 day quarantine or negative covid test. If pain or injury related was it due to an accident at work or from a motor vehicle accident? If yes, date of accident/Injury: No If yes, gather 3rd constitution party insurance information [employer] Information: not applicable PCP: Sahara Dyson MD Payor: MEDICARE / Plan: MEDICARE PART A / Product Type: Medicare / documented in this encounter Plan of Treatment Not on file documented as of this encounter Visit Diagnoses Not on filedocumented in this encounter Additional Health Concerns Assessment Noted Time PHQ-9 Depression Total Score: 0 10/27/20 24 1:21 PM EST documented as of this encounter Care Teams Pmo Analyst Relationship Specialty Start Date End Date Sahara Dyson MD PCP - General 07/07/23 documented as of this encounter
[2025-09-15 22:05] VITALS: BP 132/77; PULSE 77; RESP 17; TEMP 36.6; O2SAT 99
[2025-09-15 22:20] VITALS: BP 132/77; PULSE 77; RESP 17; TEMP 36.6; O2SAT 99
== END 2025-09-15 22:05 | disposition home or self-care (01) ==
PROVIDERS: Physician Assistant; Emergency Provider Student in an Organized Health Care Education/Training Program
DX: K57.92 Diverticulitis of intestine, part unspecified, without perforation or abscess without bleeding (principal); R30.0 Dysuria; Z87.19 Personal history of other diseases of the digestive system; Z87.442 Personal history of urinary calculi; Z79.899 Other long term (current) drug therapy
CPT/HCPCS: 36415; 74176; 80053; 81003; 85025; 99284

== ENCOUNTER → 2025-09-15 21:08 | Outpatient (BNV) | payer MEDICARE, MEDICAID, SELFPAY | PROVIDERS: Emergency Provider Student in an Organized Health Care Education/Training Program; Visit Provider Radiology Diagnostic Radiology | DX: K57.32 Diverticulitis of large intestine without perforation or abscess without bleeding (principal) | CPT/HCPCS: 74176 ==